=== PATIENT | male | born 1945 | race Caucasian/White ===

== ENCOUNTER 2024-06-07 14:33 | Outpatient (AMB) | payer MEDICARE, SELFPAY ==
--- NOTE | 2024-06-07 14:35 | MHC.OFFVIS ---
Vital Signs 06/07/24 14:36 Height 5 ft 8 in Weight 113 lb BMI 17.2 Intake Visit Reasons: Forehead Laceration, ? sutures Intake Note: This patient presents for Forehead Laceration assessment. Pt c/o; ? sutures needed, per spouse patient hit his head against a cabinet accidentally. 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 sutures: Details: 78-year-old male referred for a laceration on the scalp. He apparently hit his head on an open drawer 2 weeks ago and had a laceration on the frontal area. His did not bring him to the ER then. Eventually, the so his primary care physician. They were referred to me for possible need for sutures The says there has been no discharge or redness on the area. This has dried up as well. The says that the patient has had worsening issue with memory. [facility] Medical History (Updated 06/07/24 @ 14:56 by Ariel Monroy MD) Laceration of scalp Surgical History History of surgical removal of skin lesion (~11/03/69) H/O colonoscopy (~09/02/19) History of esophagogastroduodenoscopy (EGD) (~09/02/19) History of nasal septoplasty Family History Brother Diabetes mellitus Sister Diabetes mellitus Social History Alcohol intake: never Patient Tobacco Use Status: Never used Tobacco Review of Systems Const Denies chills and Denies fever(s) Card Denies chest pain Resp Denies cough GI Denies abdominal pain Denies difficulty with ejaculations Neuro Details: Has worsening memory issues Physical Exam Vital Signs: BMI result Body Mass Index 17.2 Const Other: Frail looking but able to ambulate, answers questions well General: comfortable and no acute distress Orientation/consciousness: patient oriented x3 HEENT Other: Healed laceration, about 3 cm on the frontal aspect of the scalp, not infected Neck Neck: Yes no lymphadenopathy Resp Auscultation: clear to auscultation bilaterally Cardio Rhythm: regular rhythm GI Palpation (GI): Soft to palpation, nontender and no guarding Neuro General: patient oriented x3 Assessment & Plan Assessment & Plan (1) Laceration of scalp: Code(s): S01.01XA - Laceration without foreign body of scalp, initial encounter Category: Medical Plan: The lower incision is actually well healed. The skin is well apposed. He does not require any sutures. There is no evidence of any infection. He can follow up on a p.r.n. basis. Coding Level of Care Code New Pt Level 2 (71296) Diagnoses Laceration of scalp S01.01XA
[2024-06-07 14:36] VITALS: BMI 17.2
== END 2024-06-07 15:06 | disposition home or self-care (01) ==
PROVIDERS: PCP Family Medicine; Visit Provider Surgery
DX: S01.01XA Laceration without foreign body of scalp, initial encounter (principal)
CPT/HCPCS: 99202

== ENCOUNTER → 2024-06-07 14:33 | Outpatient (BNVA) | payer MEDICARE, SELFPAY | PROVIDERS: PCP Family Medicine; Visit Provider Surgery | DX: S01.01XA Laceration without foreign body of scalp, initial encounter (principal); X58.XXXA Exposure to other specified factors, initial encounter; Y93.9 Activity, unspecified; Y92.89 Other specified places as the place of occurrence of the external cause; Y99.9 Unspecified external cause status | CPT/HCPCS: 99202 ==